=== PATIENT | female | born 2000 | race Caucasian/White ===

== ENCOUNTER 2023-03-14 22:35 | Emergency (ER) | payer OTHER ==
[~2023-03-14] VITALS: Ht 177.8 cm; Wt 72.6 kg
[2023-03-15] MEDS ORDERED: METOCLOPRAMIDE HCL 10 MG/2 ML VIAL IV ONE (00:30)
[2023-03-15] MEDS ORDERED: SUMATRIPTAN SUCCINATE 6 MG/0.5 ML VIAL SQ ONE ×2 (00:30)
[2023-03-15] MEDS ORDERED: IV NS 0.9% 1,000 ML BAG IV ONE ×2 (00:30)
[2023-03-15] MEDS ORDERED: METOCLOPRAMIDE HCL 10 MG/2 ML VIAL ONE (00:30)
[2023-03-15 02:25] VITALS: BP 121/74; TEMP 97.8; O2SAT 100
== END 2023-03-15 02:27 | disposition left against medical advice (07) ==
LOC: ER 22:47
DX: R51.9 Headache, unspecified (principal); Z98.890 Other specified postprocedural states
CPT/HCPCS: 99285; 96374; 70450; 96361; 96372; J3030; J2765; J7030